=== PATIENT | female | born 1995 | race Two or more races ===

== ENCOUNTER 2024-09-03 19:41 | Emergency (ER) | payer MEDICAID, SELFPAY ==
[2024-09-03 19:41] VITALS: BMI 29.7
[2024-09-03 20:05] VITALS: BP 138/83; PULSE 105; RESP 18; TEMP 38.3; O2SAT 98
--- NOTE | 2024-09-03 20:16 | PD.EDURI ---
Upper Respiratory Inf. RME/HPI General Chief Complaint: Flu Like Symptoms Stated Complaint: FLU LIKE SYMPTOMS Time Seen by Provider: 09/03/24 20:11 Arrival date/time: 09/03/24 19:41 29F with no significant PMH presents to ED with 2 days of fevers/chills, cough, and sore throat. Limitations: no limitations Related Data Allergies Allergy/AdvReac Type Severity Reaction Status Date / Time No Known Allergies Allergy Verified 09/03/24 19:43 Review of Systems Review of Systems Systems Reviewed: All systems reviewed, normal except as documented Constitutional Constitutional: Reports system reviewed and no additional complaints, except as documented, Reports as per HPI, Reports chills, Reports fever(s) and Denies headache(s) ENT Ears, Nose, Mouth, and Throat: Reports as per HPI, Denies disequilibrium, Denies headache(s) and Reports sore throat Cardiovascular Cardiovascular: Reports system reviewed and no additional complaints, except as documented, Denies chest pain and Denies dyspnea Respiratory Respiratory: Reports system reviewed and no additional complaints, except as documented, Reports as per HPI, Reports cough and Denies dyspnea Gastrointestinal Gastrointestinal: Reports system reviewed and no additional complaints, except as documented, Denies abdominal pain, Denies nausea and Denies vomiting Neurologic Neurologic: Reports system reviewed and no additional complaints, except as documented, Denies confusion, Denies disequilibrium and Denies headache(s) Psychiatric Psychiatric: Denies confusion Past Medical History Social History SMOKING STATUS: Never smoker ED Exam General Limitations: Present no limitations General appearance: Present alert and in no apparent distress Head Head exam: Present atraumatic Eye Eye exam: Present normal appearance, PERRL and EOMI ENT ENT exam: Present mucous membranes moist Expanded ENT Exam Throat exam: Present tonsillar erythema; Absent tonsillomegaly, tonsillar exudate, R peritonsillar mass, L peritonsillar mass or muffled voice Neck Neck exam: Present normal inspection, full ROM and trachea midline Chest Chest inspection: Present normal inspection and symmetric chest wall rise Respiratory Respiratory exam: Present normal lung sounds bilaterally Cardiovascular Cardiovascular exam: Present regular rate, normal rhythm and normal heart sounds Abdominal Exam Abdominal exam: Present soft and normal bowel sounds Extremities Exam Extremities exam: Present normal inspection and full ROM Back Exam Back exam: Present normal inspection and full ROM Neurological Exam Neurological exam: Present alert, oriented X3 and CN II-XII intact Psychiatric Psychiatric exam: Present normal affect and normal mood Skin Skin exam: Present warm, dry, intact and normal color Course Quality Measures none Orders Category Date Time Status Bedside COVID-19 Antigen Test NOW Care 09/03/24 20:11 Active Bedside Influenza A&B Antigen Test NOW Care 09/03/24 20:11 Completed Acetaminophen Tab [Tylenol ES Tab] Med 09/03/24 20:11 Discontinued 1,000 mg PO X1 ONE Ibuprofen Tab [Motrin Tab] Med 09/03/24 20:11 Discontinued 600 mg PO X1 ONE Vital Signs Vital signs: Vital Signs Temperature 101 F H 09/03/24 20:05 Pulse Rate 105 H 09/03/24 20:05 Respiratory Rate 18 09/03/24 20:05 Blood Pressure 138/83 H 09/03/24 20:05 Pulse Oximetry (%) 98 09/03/24 20:05 Oxygen Delivery Method Room Air 09/03/24 20:05 O2 at 98% on RA and WNLs Upper Respiratory Infection MDM Narrative MDM Narrative:: 29F with no significant PMH presents to ED with 2 days of fevers/chills, cough, and sore throat. Physical exam reveals red oropharynx, but otherwise clear ENT and lungs. Patient is febrile, but does not appear toxic. Flu B+. Patient data External records reviewed:: None Clinical information provided by:: patient Social determinants that could affect healthcare access:: none Patient has the following chronic illnesses:: none How is presenting disease/condition affected by chronic disease/condition?: no chronic disease Evaluation data The following diagnostics were reviewed and interpreted by me:: lab results Lab and/or radiology exams considered but not ordered:: ordered Interpretation Summary: above Medications / Prescriptions Medications or Prescriptions considered but not ordered:: ordered Medication administrations:: Medication Administration History Discontinued Medications Acetaminophen (Acetaminophen 500 Mg Tablet) 1,000 mg PO X1 ONE Stop: 09/03/24 20:12 Last Admin: 09/03/24 20:52 Dose: 1,000 mg Documented By: WARREN Ibuprofen (Ibuprofen Tab 600 Mg Tablet) 600 mg PO X1 ONE Stop: 09/03/24 20:12 Last Admin: 09/03/24 20:52 Dose: 600 mg Documented By: WARREN above Consultations Consultation(s) initiated? (list below): No Diagnosis Upper Respiratory Differential Diagnosis: upper respiratory infection, croup, otitis media, sinusitis, viral infection, bronchitis, influenza, pharyngitis and other (CAP) Most likely diagnosis given after review of the tests above:: flu B Admission Indicated Admission indicated?: not indicated Admission Request Was there a request for admission?: No Disposition Plan Disposition Plan: Discharge Discharge Attestation Discharge Attestation: The patient and all family members were given an opportunity to ask questions and understood the discharge instructions. Discharge instructions specifically effects, indications for sooner follow up or return to the emergency department, and the expected course of current diagnosis. Patient condition: Stable Discharge Plan Plan Patient Disposition: HOME (Self Care) Disposition Comment: Stable Prescriptions/Referrals Referrals: Memo ([facility]),CODIE Guzman [Primary Care Provider] - In 1 week Problem List Clinical Impression: Influenza B Patient/Caregiver Discharge Instructions Additional Instructions: Please follow-up with PCP within 24-48 hours and return immediately if symptoms worsen. Ibuprofen/Tylenol can be used simultaneously for greater fever/pain control. Benadryl is good for cough, congestion, and sleep. Print Language: Norwegian Stand Alone Forms: Patient Portal Info Letter YAZMIN/CODIE Supervising Physician JOVANI Supervising Physician: Dr. Gallagher
[2024-09-03 20:52] VITALS: TEMP 37.7
[2024-09-03] MEDS: ACETAMINOPHEN 500 MG TABLET 1000 MG PO (20:52)
[2024-09-03] MEDS: IBUPROFEN TAB 600 MG TABLET PO (20:52)
[2024-09-03 22:01] VITALS: BP 135/86; PULSE 93; RESP 18; TEMP 37.4; O2SAT 96
== END 2024-09-03 22:13 | disposition home or self-care (01) ==
PROVIDERS: Emergency Provider Emergency Medicine; PCP Nurse Practitioner Primary Care
DX: J10.1 Influenza due to other identified influenza virus with other respiratory manifestations (principal)
CPT/HCPCS: 87400; 87651; 87811; 99283; A9270